=== PATIENT | male | born 1940 | race Hispanic/Latino ===

== ENCOUNTER 2019-05-02 05:53 | Day surgery (SDC) | payer MEDICARE ==
[~2019-05-02 05:53] MED LIST: LACTATED RINGERS 1,000 ML IV SCH; VANCOMYCIN/NS 1 GM/250 ML 1 GM/250 ML BAG IV SCH
[2019-05-02] MEDS ORDERED: GENTAMICIN/NS 80 MG/100 ML 100 ML IV SCH (06:00)
[2019-05-02] MEDS ORDERED: GENTAMICIN/NS 80 MG/100 ML 100 ML IV ONE (06:59)
[2019-05-02] MEDS ORDERED: ROCURONIUM 50 MG/5 ML INJ IV ONE (07:00)
[2019-05-02] MEDS ORDERED: propofoL 200 MG/20 ML VIAL IV ONE (07:00)
[2019-05-02] MEDS ORDERED: LIDOCAINE MPF (2%) 20 MG/1 ML VIAL 5 ML ONE (07:00)
[2019-05-02] MEDS ORDERED: fentaNYL 100 MCG/2 ML INJ ONE ×2 (07:00→09:09)
[2019-05-02] MEDS ORDERED: SODIUM CHLORIDE 0.9% 250ML 0 ML ONE (07:18)
[2019-05-02] MEDS ORDERED: NEOMY 40 MG/POLYMYXIN B 200,000 UNITS/ML (GU) AMPULE IR ONE ×3 (07:19→08:44)
[2019-05-02] MEDS ORDERED: fentaNYL 100 MCG/2 ML INJ IV PRN (07:24)
--- NOTE | 2019-05-02 07:27 | Anesthesia Day of Surgery ---
Anesthesia Day of Surgery - Day of Surgery Patient Examined: Yes Patient H&P Reviewed: Yes Patient is NPO: Yes Beta Blockers: Yes Cardiac Clearance: Yes
--- NOTE | 2019-05-02 07:27 | Anesthesia Consultation ---
Anesthesia Consult and Med Hx Date of service: 05/02/19 - Airway Anesthetic Teeth Evaluation: Edentulous ROM Head & Neck: Adequate Mental/Hyoid Distance: Adequate Mallampati Class: Class I Intubation Access Assessment: Probably Good (previous LMA 4) - Pulmonary Exam CTA: Yes - Cardiac Exam Cardiac Exam: RRR - Pre-Operative Health Status ASA Pre-Surgery Classification: ASA3 Proposed Anesthetic Plan: General - Pulmonary Hx Smoking: Yes (quit 1979) Hx Respiratory Symptoms: No Hx Sleep Apnea: No (NELA PRE SCREEN HIGH RISK) - Cardiovascular System Hx Hypertension: Yes (took metoprolol, losartan this morning) Hx Coronary Artery Disease: Yes (CABG 10/2013, cardiology clearance on chart) Hx Heart Attack/AMI: No Hx Angina: No Hx Cardia Arrhythmia: Yes (1 episode a-2013; LBBB on most recent EKG) Hx Pacemaker: No Hx Internal Defibrillator: No Hx Peripheral Vascular Disease: No - Central Nervous System CVA: No Hx Psychiatric Problems: No - Gastrointestinal Hx Gastroesophageal Reflux Disease: No - Endocrine Hx Renal Disease: No Hx Liver Disease: No Hx Insulin Dependent Diabetes: No Hx Non-Insulin Dependent Diabetes: No Hx Thyroid Disease: No - Other Systems Hx Cancer: Yes (Prostate CA ) Hx Obesity: No - Additional Comments Anesthesia Medical History Comments: Hx PONV. TTE 04/2019: EF 65%
[2019-05-02] MEDS ORDERED: VANCOMYCIN 1,250 MG in SODIUM CHLORIDE 0.9% 250ML 250 ML IV NR (07:30)
[2019-05-02] MEDS ORDERED: dexAMETHasone 20 MG/5 ML VIAL ONE (08:00)
[2019-05-02] MEDS ORDERED: ePHEDrine SULFATE 50 MG/1 ML INJ ONE (08:06)
[2019-05-02] MEDS ORDERED: HYDROGEN PEROXIDE 118 ML SOLUTION ONE (08:18)
[2019-05-02] MEDS ORDERED: ONDANSETRON 4 MG/2 ML INJ ONE (08:19)
[2019-05-02] MEDS ORDERED: HYDROGEN PEROXIDE 118 ML SOLUTION TP ONE (08:48)
[2019-05-02] MEDS ORDERED: SODIUM CHLORIDE 0.9% IRR 1,500 ML BOTTLE IR ONE (08:49)
[2019-05-02] MEDS ORDERED: WATER FOR IRRIG STERILE 2000 ML IR ONE (08:50)
--- NOTE | 2019-05-02 09:33 | Short Stay Summary ---
Short Stay Documentation Date of service: 05/02/19 - History H&P: obtained from office - Allergies and Medications Current Medications: Allergies No Known Allergies Allergy (Verified 10/19/13 09:47) Home Medications Medication Instructions Recorded Confirmed Last Taken Type Aspirin [Aspirin BABY CHEW TAB] 81 mg PO DAILY 10/19/13 04/19/19 11/09/14 History AtorvaSTATin [Lipitor] 20 mg PO DAILY 11/10/14 04/19/19 11/14/14 18:00 History Losartan [Cozaar] 100 mg PO QDAY 04/19/19 04/19/19 Unknown History Metoprolol [Lopressor TAB] 25 mg PO BID 04/19/19 04/19/19 Unknown History Active Medications Fentanyl (Sublimaze) 50 mcg IV Q5MIN PRN PRN Reason: Pain , Severe (7-10) Stop: 05/02/19 20:00 Gentamicin Sulfate/Sodium Chloride (Gentamicin/Ns 80 Mg/100 Ml) 100 mls @ 196.078 mls/hr IV PREOP TONY; Protocol Vancomycin HCl (Vancomycin/Ns 1 Gm/250 Ml) 1 gm in 250 mls @ 160.085 mls/hr IV PREOP TONY; Protocol Lactated Ringer's (Lactated Ringers) 1,000 mls @ 100 mls/hr IV DIRECT TONY Last Admin: 05/02/19 07:05 Dose: 100 mls/hr Documented by: Vancomycin HCl 1,250 mg/ (Sodium Chloride) 275 mls @ 166.667 mls/hr IV PREOP NR Stop: 05/02/19 10:00 Last Admin: 05/02/19 07:25 Dose: 166.667 mls/hr Documented by: - Brief post op/procedure progress note Date of procedure: 05/02/19 Pre-op diagnosis: mal fx aus, incontinence Post-op diagnosis: other (impacted urethtal stone, incontinence) Procedure: urethroscopy, lithoclast lithotrispy impacted urethral stone---- staged Anesthesia: GETA Surgeon: HUBERT JACKSON Estimated blood loss: minimal Pathology: none Condition: stable - Hospital course Hospital course: pt has norco & bactrim - Disposition Condition at discharge: Stable Disposition: DC-01 TO HOME OR SELFCARE Short Stay Discharge Plan Follow up with: DEJA FARR MD [Primary Care Provider] - 7 Days
--- NOTE | 2019-05-02 10:00 | Operative Report ---
PREOPERATIVE DIAGNOSES: Urinary incontinence, malfunctioning artificial urinary sphincter. POSTOPERATIVE DIAGNOSES: Urinary incontinence, malfunctioning artificial urinary sphincter, impacted urethral stone. PROCEDURE: Ureteroscopy, lithoclast lithotripsy of impacted ureteral stone (stage procedure). SURGEON: Dr. Pascal. ANESTHESIA: General. ESTIMATED BLOOD LOSS: Minimal. FLUIDS: Crystalloid. COMPLICATIONS: No complications. INDICATIONS: This patient is a 78-year-old gentleman known to our service, underwent radical robotic prostatectomy [address] Corey Duran. He has had no evidence of disease from his cancer standpoint. He had persistent urinary incontinence and erectile dysfunction, underwent previous inflatable penile prosthesis and then later male sling and then ultimately artificial urinary sphincter. In the office, he presented with 1 year of urinary incontinence. No pain. In the office, the sphincter pump would not completely deflate. He presents now for replacement. DESCRIPTION OF PROCEDURE: The patient was taken to the operative suite, placed in a supine position. After adequate general anesthesia, placed in a dorsal lithotomy position, prepped and draped in the sterile fashion. Ureteroscopy was performed. Obvious stone could be appreciated at the impacted and at the level of the artificial urinary sphincter, switched from a flexible to a rigid scope, grasper was used to try to engage and pulled the stone could not pull it out. The urethral integrity was intact. Next, using a LithoClast lithotripter, lithotripsy of the impacted stone was performed. I was able to break up some of the fragments; however, started to have some bleeding and edema of the urethra. At this point, I was concerned for the integrity of the urethra and I stopped and decided it would be prudent to stage the procedure otherwise risk erosion of his sphincter and possible penile implant. He was extubated and taken to recovery room in stable condition. PLAN: He will go home. He has Bactrim and [place] and will follow up in the office for followup for staged procedure. JOB# [id number] [facility]
[2019-05-02 10:42] VITALS: BP 145/68
--- NOTE | 2019-05-02 11:25 | Post Anesthesia Evaluation ---
- Post Anesthesia Evaluation Patient Participated: Yes Airway Patent: Yes Stable Respiratory Function: Yes Nausea/Vomiting: No Temp > 96.8F: Yes Pain Manageable: Yes Adequeate Hydration: Yes Anesthesia Complications: No
== END 2019-05-02 05:54 | disposition home or self-care (01) ==
LOC: OR 05:53
PROVIDERS: ATTEND Urology
DX: N39.498 Other specified urinary incontinence (principal); T83.111A Breakdown (mechanical) of implanted urinary sphincter, initial encounter; I48.91 Unspecified atrial fibrillation; I42.9 Cardiomyopathy, unspecified; I25.10 Atherosclerotic heart disease of native coronary artery without angina pectoris; E78.00 Pure hypercholesterolemia, unspecified; I10 Essential (primary) hypertension; Z87.440 Personal history of urinary (tract) infections; Z79.899 Other long term (current) drug therapy; Z79.82 Long term (current) use of aspirin; Z95.1 Presence of aortocoronary bypass graft; Z87.891 Personal history of nicotine dependence; Z85.46 Personal history of malignant neoplasm of prostate; Z98.890 Other specified postprocedural states; Z82.49 Family history of ischemic heart disease and other diseases of the circulatory system
CPT/HCPCS: 52353; A4217; J1100; J1580; J2405; J2704; J3010; J3370; J7050; J7120

== ENCOUNTER 2019-05-18 10:59 | Day surgery (SDC) | payer MEDICARE ==
[~2019-05-18 10:59] MED LIST changes: +GENTAMICIN/NS 80 MG/100 ML 100 ML IV SCH; -LACTATED RINGERS 1,000 ML IV SCH; +LIDOCAINE MPF (2%) 20 MG/1 ML VIAL 5 ML ONE; +fentaNYL 100 MCG/2 ML INJ ONE; +propofoL 200 MG/20 ML VIAL IV ONE
--- NOTE | 2019-05-18 11:22 | Anesthesia Consultation ---
Anesthesia Consult and Med Hx Date of service: 05/18/19 - Airway Anesthetic Teeth Evaluation: Dentures ROM Head & Neck: Adequate Mental/Hyoid Distance: Adequate Mallampati Class: Class II Intubation Access Assessment: Probably Good (previous easy LMA 4) - Pulmonary Exam CTA: Yes - Cardiac Exam Cardiac Exam: RRR - Pre-Operative Health Status ASA Pre-Surgery Classification: ASA3 Proposed Anesthetic Plan: General - Pulmonary Hx Smoking: Yes (STOPPED 1979) Hx Respiratory Symptoms: No Hx Sleep Apnea: No (NELA PRE SCREEN HIGH RISK.) - Cardiovascular System Hx Hypertension: Yes (took metoprolol and losartan this morning) Hx Coronary Artery Disease: Yes (s/p CABG 2013) Hx Cardia Arrhythmia: Yes (1 episode a-fib 2013; LBBB on most recent EKG) Hx Pacemaker: No Hx Internal Defibrillator: No - Central Nervous System CVA: No - Gastrointestinal Hx Gastroesophageal Reflux Disease: No - Endocrine Hx Renal Disease: No Hx Liver Disease: No Hx Insulin Dependent Diabetes: No Hx Non-Insulin Dependent Diabetes: No Hx Thyroid Disease: No - Other Systems Hx Cancer: Yes (Prostate CA ) Hx Obesity: No - Additional Comments Anesthesia Medical History Comments: Hx PONV with previous anesthetics however none wl most recent GA last month.
--- NOTE | 2019-05-18 11:23 | Anesthesia Day of Surgery ---
Anesthesia Day of Surgery - Day of Surgery Patient Examined: Yes Patient H&P Reviewed: Yes Patient is NPO: Yes Beta Blockers: Yes
[2019-05-18] MEDS ORDERED: LACTATED RINGERS 1,000 ML IV SCH (12:00)
[2019-05-18] MEDS ORDERED: ceFAZolin/Water 2 GM/20 ML 2 GM/20 ML SYRINGE IV NR (13:00)
[2019-05-18] MEDS ORDERED: WATER FOR IRRIG STERILE 2000 ML IR ONE (13:35)
[2019-05-18] MEDS ORDERED: IOHEXOL 300 MG/ML 100ML IV ONE (13:35)
[2019-05-18] MEDS ORDERED: ONDANSETRON 4 MG/2 ML INJ ONE (14:39)
--- NOTE | 2019-05-18 14:41 | Short Stay Summary ---
Short Stay Documentation Date of service: 05/18/19 Narrative H&P: 78 yr old male with AUS & impacted urethral stone present for treatment also has 4mm penile lesion - History Past Medical History: CAD (CABG. robotic prostatectomy, AUS, IPP) - Allergies and Medications Current Medications: Allergies No Known Allergies Allergy (Verified 10/19/13 09:47) Home Medications Medication Instructions Recorded Confirmed Last Taken Type Aspirin [Aspirin BABY CHEW TAB] 81 mg PO DAILY 10/19/13 05/18/19 05/10/19 History AtorvaSTATin [Lipitor] 20 mg PO DAILY 11/10/14 05/18/19 05/17/19 History Losartan [Cozaar] 100 mg PO QDAY 04/19/19 05/18/19 05/18/19 History Metoprolol [Lopressor TAB] 25 mg PO BID 04/19/19 05/18/19 05/18/19 History Active Medications Fentanyl (Sublimaze) 50 mcg IV Q5MIN PRN PRN Reason: Pain , Severe (7-10) Lactated Ringer's (Lactated Ringers) 1,000 mls @ 100 mls/hr IV DIRECT TONY Last Admin: 05/18/19 11:55 Dose: 100 mls/hr Documented by: Cefazolin Sodium (Ancef/Sterile Water 2 Gm/20 Ml) 2 gm in 20 mls @ 80 mls/hr IV PREOP NR; Protocol Stop: 05/18/19 18:00 - Physical exam General appearance: no acute distress, well-nourished Integumentary: no rash, no growths Lungs: Clear to auscultation, Normal air movement Heart: Regular rate, No murmurs Rectal Exam: deferred Extremities: no ischemia, No edema - Brief post op/procedure progress note Date of procedure: 05/18/19 Pre-op diagnosis: AUS & impacted urethral stone. peile lesion Post-op diagnosis: same Procedure: urethroscopy, holium laser stone, excision penile lesion Anesthesia: GETA Surgeon: HUBERT JACKSON Estimated blood loss: minimal Pathology: list (stone, penile lesion) Specimen disposition: to lab Condition: stable - Hospital course Hospital course: cipro on chart - Disposition Condition at discharge: Stable Disposition: DC-01 TO HOME OR SELFCARE Short Stay Discharge Plan Follow up with: DEJA FARR MD [Primary Care Provider] - 7 Days
[2019-05-18] MEDS ORDERED: LACTATED RINGERS 1,000 ML ONE (14:42)
[2019-05-18] MEDS: fentaNYL 100 MCG/2 ML INJ IV PRN ×2 (15:05→15:20)
[2019-05-18 15:58] VITALS: BP 144/71
--- NOTE | 2019-05-18 16:45 | Fluoroscopy Report ---
INTRAOPERATIVE FLUOROSCOPY: URETHROGRAM INDICATION / CLINICAL INFORMATION: CALCULUS OF URETHRA. TECHNIQUE: Intraoperative spot images were obtained during the procedure. FINDINGS: Intraoperative urethrogram performed. Contrast is noted in the penile urethra. The proximal urethra a ppears somewhat narrow on this exam but is patent. No urethral disruption is seen. Fluoroscopy Time: 5 seconds. Fluoroscopy Images: 6. Signer Name: Edison Lakhani MD Signed: 05/18/2019 4:40 PM Workstation Name: [id number]
--- NOTE | 2019-05-18 18:20 | Operative Report ---
PREOPERATIVE DIAGNOSIS: Impacted urethral stone, status post artificial urinary sphincter. POSTOPERATIVE DIAGNOSIS: Impacted urethral stone, status post artificial urinary sphincter. He also had a penile lesion. PROCEDURES: Urethroscopy, holmium laser lithotripsy, urethral stone, urethrogram, excision of penile lesion, staged procedure. SURGEON: Pedro Pascal MD ANESTHESIA: General. ESTIMATED BLOOD LOSS: Minimal. FLUIDS: Crystalloid. COMPLICATIONS: No complications. INDICATIONS: This 78-year-old gentleman known to our service prostate. He has a history of prostate cancer, status post robotic prostatectomy, status post artificial urinary sphincter and penile prosthesis. A stone was wedged in his sphincter. Sphincter was reactivated. He underwent previous lithoclast lithotripsy with some fragmentation of the disimpacted stone, had to stop due to ____, bleeding and concern for injuring the sphincter cuff; therefore, I stopped. He presents now for staged procedure. DESCRIPTION OF PROCEDURE: The patient was taken to the operative suite, placed in a supine position. After adequate general anesthesia, placed in a dorsal lithotomy position, prepped and draped in a sterile fashion. The patient has a penile lesion at the left side of the coronal ridge. A Bovie was used to excise this area approximately 1 cm, 3-0 Vicryl was used to close it in interrupted fashion, skin glue was then placed over it. Urethroscopy was performed. Urethrogram could see some dye get into the bladder, a large stone wedged into the sphincter using a 300 micron holmium fiber starting at 4 maradiaga going up to 10 maradiaga lithotripsy of the stone could be appreciated. His stone was fairly hard, started to be some edema of the urethra, was concerned about the integrity of the urethra and damaging the sphincter and therefore, I stopped the procedure. He was extubated and taken to recovery room. He will go home on [facility] and will come back in 2-3 weeks. JOB# [id number] [facility]
== END 2019-05-18 16:35 | disposition home or self-care (01) ==
LOC: OR 10:59
PROVIDERS: ATTEND Urology
DX: N21.1 Calculus in urethra (principal); N50.89 Other specified disorders of the male genital organs; I48.91 Unspecified atrial fibrillation; I25.10 Atherosclerotic heart disease of native coronary artery without angina pectoris; I42.9 Cardiomyopathy, unspecified; E78.00 Pure hypercholesterolemia, unspecified; I10 Essential (primary) hypertension; Z85.46 Personal history of malignant neoplasm of prostate; Z98.890 Other specified postprocedural states; Z79.899 Other long term (current) drug therapy; Z95.1 Presence of aortocoronary bypass graft; Z79.82 Long term (current) use of aspirin; Z87.891 Personal history of nicotine dependence; Z87.440 Personal history of urinary (tract) infections; Z82.49 Family history of ischemic heart disease and other diseases of the circulatory system
CPT/HCPCS: 11421; 36415; 52353; 74450; 82365; 88305; 88312; 88341; 88342; A4217; C1726; C1769; J0690; J2405; J2704; J3010; J7120; Q9967

== ENCOUNTER 2019-06-01 12:27 | Day surgery (SDC) | payer MEDICARE ==
[2019-06-01] MEDS ORDERED: LACTATED RINGERS 1,000 ML IV SCH (13:00)
--- NOTE | 2019-06-01 13:56 | Anesthesia Day of Surgery ---
Anesthesia Day of Surgery - Day of Surgery Patient Examined: Yes Patient H&P Reviewed: Yes Patient is NPO: Yes Beta Blockers: Yes Cardiac Clearance: Yes
--- NOTE | 2019-06-01 13:59 | Anesthesia Consultation ---
Anesthesia Consult and Med Hx Date of service: 06/01/19 - Airway Anesthetic Teeth Evaluation: Edentulous ROM Head & Neck: Adequate Mental/Hyoid Distance: Adequate Mallampati Class: Class II Intubation Access Assessment: Good - Pre-Operative Health Status ASA Pre-Surgery Classification: ASA3 Proposed Anesthetic Plan: General - Pre-Anesthesia Comment Pre-Anesthesia Comments: HX PONV - Pulmonary Hx Smoking: Yes (STOPPED 1979) Hx Asthma: No Hx Respiratory Symptoms: No COPD: No Hx Pneumonia: No Hx Sleep Apnea: No (NELA PRE SCREEN HIGH RISK) - Cardiovascular System Hx Hypertension: Yes (X 30 YRS) Hx Coronary Artery Disease: Yes (CABG 2013. + Cardiac clearance. Pt states he ca n climb 2FS) Hx Cardia Arrhythmia: Yes (1 episode a-fib 2013; LBBB on most recent EKG) - Central Nervous System Hx Seizures: No CVA: No Hx Psychiatric Problems: No - Gastrointestinal Hx Ulcer: No Hx Gastroesophageal Reflux Disease: No - Endocrine Hx Renal Disease: No Hx Cirrhosis: No Hx Liver Disease: No Hx Insulin Dependent Diabetes: No Hx Non-Insulin Dependent Diabetes: No Hx Thyroid Disease: No Hx Hypothyroidism: No Hx Hyperthyroidism: No - Other Systems Hx Cancer: Yes (Prostate CA ) Hx Obesity: No - Additional Comments Anesthesia Medical History Comments: Was here [id number]
[2019-06-01] MEDS ORDERED: ceFAZolin/STERILE WATER 2 GM/20 ML SYRINGE IV NR (14:23)
[2019-06-01] MEDS ORDERED: propofoL 200 MG/20 ML VIAL IV ONE (14:29)
[2019-06-01] MEDS ORDERED: fentaNYL 100 MCG/2 ML INJ ONE (14:29)
[2019-06-01] MEDS ORDERED: LIDOCAINE MPF (2%) 20 MG/1 ML VIAL 5 ML ONE (14:29)
[2019-06-01] MEDS ORDERED: ONDANSETRON 4 MG/2 ML INJ ONE (14:30)
[2019-06-01] MEDS ORDERED: dexAMETHasone 20 MG/5 ML VIAL ONE (14:30)
[2019-06-01] MEDS ORDERED: WATER FOR IRRIG STERILE 2000 ML IR ONE (16:00)
[2019-06-01] MEDS ORDERED: LACTATED RINGERS 1,000 ML ONE (16:14)
--- NOTE | 2019-06-01 16:22 | Short Stay Summary ---
Short Stay Documentation Date of service: 06/01/19 Narrative H&P: 78 yr old male with AUS & impacted urethral stone present for treatment also has 4mm penile lesion (removed last procedure) - History Past Medical History: CAD (CABG. robotic prostatectomy, AUS, IPP) - History Past Medical History: No medical history, CAD Past Surgical History: CABG Social history: - Allergies and Medications Current Medications: Allergies No Known Allergies Allergy (Verified 10/19/13 09:47) Home Medications Medication Instructions Recorded Confirmed Last Taken Type Aspirin [Aspirin BABY CHEW TAB] 81 mg PO DAILY 10/19/13 06/01/19 05/25/19 History AtorvaSTATin [Lipitor] 20 mg PO DAILY 11/10/14 06/01/19 05/31/19 History Losartan [Cozaar] 100 mg PO QDAY 04/19/19 05/26/19 06/01/19 08:30 History Metoprolol [Lopressor TAB] 25 mg PO BID 04/19/19 05/26/19 06/01/19 08:30 History Active Medications Cefazolin Sodium (Ancef/Sterile Water 2 Gm/20 Ml) 2 gm IV PREOP NR Stop: 06/01/19 23:59 Lactated Ringer's (Lactated Ringers) 1,000 mls @ 100 mls/hr IV DIRECT TONY Last Admin: 06/01/19 13:10 Dose: 100 mls/hr Documented by: - Physical exam General appearance: no acute distress, well-nourished Integumentary: no rash, no growths Lungs: Clear to auscultation, Normal air movement Heart: Regular rate, No murmurs Gastrointestinal: normal Male Genitourinary: normal Rectal Exam: normal rectal tone Extremities: no ischemia, No edema Neurological: Normal gait - Brief post op/procedure progress note Date of procedure: 06/01/19 Pre-op diagnosis: impacted urethral stone Post-op diagnosis: same Procedure: urethroscopy, urethrogram, holmium llaser impacted urethral stone Anesthesia: GETA Surgeon: HUBERT JACKSON Estimated blood loss: minimal Condition: stable - Hospital course Hospital course: cipro on chart---pt has pain meds - Disposition Condition at discharge: Stable Disposition: DC-01 TO HOME OR SELFCARE Short Stay Discharge Plan Follow up with: DEJA FARR MD [Primary Care Provider] - 7 Days
--- NOTE | 2019-06-01 16:48 | Operative Report ---
PREOPERATIVE DIAGNOSIS: Impacted urethral stone, status post artificial urinary sphincter. POSTOPERATIVE DIAGNOSES: Impacted urethral stone, status post artificial urinary sphincter. PROCEDURE: Ureteroscopy, urethrogram, holmium laser lithotripsy of urethral stone, staged procedure. SURGEON: Pedro Pascal MD ANESTHESIA: General. ESTIMATED BLOOD LOSS: Minimal. FLUIDS: Crystalloid. COMPLICATIONS: No complications. INDICATIONS: This patient is a 78-year-old gentleman known to our service with a history of prostate cancer, status post radical prostatectomy, artificial urinary sphincter and penile prosthesis. He has done well in the past; however, he has a wedged urethral stone in his sphincter. The sphincter has been deactivated. Previous lithoclast and holmium laser reduced the stone burden; however, there was edema and swelling of the urethra and I felt it was prudent to stage the procedure. He presents now for reevaluation. DESCRIPTION OF PROCEDURE: The patient was taken to the operative suite, placed in a supine position. After adequate general anesthesia, placed in a dorsal lithotomy position, prepped and draped in a sterile fashion. Ureteroscopy was performed. Urethrogram contrast was noted in the bladder. Obvious stone could be noted in the sphincter, which was still deactivated. Attempts to engage it with a grasper was unsuccessful in removing it. Using a 300-micron holmium fiber starting at 4 maradiaga and going up to 10, holmium lithotripsy was performed. Fragmentation of the stone could be appreciated and was able to remove some of the fragments and render him stone free. I then put a 0.035 Glidewire from the urethra into the bladder under fluoroscopic guidance and advanced a flexible ureteroscope into the bladder. No other abnormalities could be a appreciated. The integrity of the urethra was intact. Sphincter cuff was not exposed. The patient tolerated the procedure well. Rectal exam was benign. He was extubated and taken to recovery room. Go home on Cipro. We will reactivate his sphincter in 3-4 weeks. JOB# [id number] [facility]
[2019-06-01 17:03] VITALS: BP 142/75
--- NOTE | 2019-06-01 17:10 | Fluoroscopy Report ---
SPOT FILMS OF THE ABDOMEN 4 VIEWS INDICATION / CLINICAL INFORMATION: URETHRAL STONE. COMPARISON: None available. FINDINGS: Intraoperative images show placement of a wire and catheter through the urethra into the urinary blad sukhjinder. Some contrast is demonstrated within the bladder. No contrast extravasation. Signer Name: Devaughn Mccormack MD Signed: 06/01/2019 5:06 PM Workstation Name: [id number]
--- NOTE | 2019-06-02 08:17 | Post Anesthesia Evaluation ---
- Post Anesthesia Evaluation Patient Participated: Yes Airway Patent: Yes Stable Respiratory Function: Yes Nausea/Vomiting: No Temp > 96.8F: Yes Pain Manageable: Yes Adequeate Hydration: Yes Anesthesia Complications: No Block Receding Appropriately: Not Applicable Patient on Ventilator: No
== END 2019-06-01 17:30 | disposition home or self-care (01) ==
LOC: OR 12:27
PROVIDERS: ATTEND Urology
DX: N21.1 Calculus in urethra (principal); I48.91 Unspecified atrial fibrillation; I25.10 Atherosclerotic heart disease of native coronary artery without angina pectoris; I42.9 Cardiomyopathy, unspecified; E78.00 Pure hypercholesterolemia, unspecified; I10 Essential (primary) hypertension; Z85.46 Personal history of malignant neoplasm of prostate; Z98.890 Other specified postprocedural states; Z79.899 Other long term (current) drug therapy; Z95.1 Presence of aortocoronary bypass graft; Z79.82 Long term (current) use of aspirin; Z79.01 Long term (current) use of anticoagulants; Z87.891 Personal history of nicotine dependence; Z87.440 Personal history of urinary (tract) infections; Z82.49 Family history of ischemic heart disease and other diseases of the circulatory system
CPT/HCPCS: 51610; 52353; 74450; A4217; C1758; C1769; J0690; J1100; J2405; J2704; J3010; J7120; Q9967

== ENCOUNTER 2019-11-23 06:14 | Emergency (ER) | payer MEDICARE ==
--- NOTE | 2019-11-23 06:38 | Emergency Department Report ---
ED Male HPI - General Chief complaint: Abdominal Pain Stated complaint: URINARY RETENTION Time Seen by Provider: 11/23/19 06:30 Source: patient, RN notes reviewed, old records reviewed Mode of arrival: Ambulatory Limitations: No Limitations - History of Present Illness Initial comments: The patient was evaluated in the emergency department for symptoms described in the history of present illness. He/she was evaluated in the context of the global COVID-19 pandemic, which necessitated consideration that the patient might be at risk for infection with the virus that causes COVID-19. Institutional protocols and algorithms that pertain to the evaluation of patients at risk for COVID-19 are in a state of rapid change based on information released by regulatory bodies including the CDC and federal and state organizations. These policies and algorithms were followed during the patient's care in the emergency department. Please note that these policies, procedures and recommendations changed on a rapid basis. During the entire history and physical examination, I am chaperoned/escorted by nurse Brenda Zapien Urology/: Dr. Aidan Pascal Past medical history: Left bundle branch block, history of prostate cancer, radical prostatectomy in 2008, history of artificial urinary sphincter, and penile prosthesis. Patient had a short stay at this hospital November 07, 2019, had replacement of artificial urinary sphincter performed, and a cystoscopy performed. He was discharged after an uneventful stay, with a Magana catheter which was sub sequently removed. He then developed urinary retention, and had a Magana catheter replaced, and he saw his aforementioned urologist yesterday, who then discontinued the Magana catheter, and the patient passed a trial of void while in the office. He then presents to the ER today with complaint of inability to urinate. He denies all other complaints. He denies headache, neck pain, chest pain, shortness of breath, nausea, vomiting, testicular pain, a significant postoperative pain. He states he is only able to urinate "a little dribble." He indicates that if he were able to urinate, he would not have presented to the emergency room. He states his postoperative check yesterday with his surgeon was "good." Complaint: other -: Sudden, hour(s) Radiation: none Consistency: constant Improves with: none Worsens with: none urinary retention - Related Data Home Medications Medication Instructions Recorded Confirmed Last Taken Aspirin [Aspirin BABY CHEW TAB] 81 mg PO DAILY 0811/07/19 10/31/19 09:00 AtorvaSTATin [Lipitor] 20 mg PO HS 11/10/14 11/07/19 11/06/19 20:00 Losartan [Cozaar] 100 mg PO QDAY 04/19/19 11/07/19 11/07/19 05:00 Metoprolol [Lopressor TAB] 25 mg PO QID 04/19/19 11/07/19 11/07/19 05:00 Previous Rx's Medication Instructions Recorded Last Taken Type Nitrofurantoin [place]/M-Cryst 100 mg PO Q12HR #13 capsule 11/23/19 Unknown Rx [Macrobid CAP] Allergies Allergy/AdvReac Type Severity Reaction Status Date / Time No Known Allergies Allergy Verified 10/19/13 09:47 ED Review of Systems ROS: Stated complaint: URINARY RETENTION Other details as noted in HPI Constitutional: denies: fever Eyes: denies: eye discharge ENT: denies: epistaxis Respiratory: denies: cough Cardiovascular: denies: chest pain Gastrointestinal: abdominal pain (Suprapubic abdominal pain). denies: nausea, vomiting, hematemesis, melena Genitourinary: other (Urinary retention). denies: urgency, dysuria, frequency, hematuria, testicular pain Neurological: denies: weakness ED Past Medical Hx - Past Medical History Previous Medical History?: Yes Hx Hypertension: Yes (X 30 YRS) Hx Heart Attack/AMI: No Hx Congestive Heart Failure: No Hx Diabetes: No Hx Pulmonary Embolism: No Hx GERD: No Hx Liver Disease: No Hx Renal Disease: No Hx Sickle Cell Disease: No Hx Arthritis: No Hx Headaches / Migraines: No Hx Seizures: No Hx Kidney Stones: Yes Hx Asthma: No Hx COPD: No Hx Tuberculosis: No Hx Dementia: No Hx HIV: No - Surgical History Past Surgical History?: Yes Hx Coronary Stent: No Hx Open Heart Surgery: Yes (2014 4 VESSELS) Hx Pacemaker: No Hx Internal Defibrillator: No Additional Surgical History: angioplasty - Social History Smoking Status: Never Smoker Substance Use Type: None - Medications Home Medications: Home Medications Medication Instructions Recorded Confirmed Last Taken Type Aspirin [Aspirin BABY CHEW TAB] 81 mg PO DAILY 10/19/13 11/07/19 10/31/19 09:00 History AtorvaSTATin [Lipitor] 20 mg PO HS 11/10/14 11/07/19 11/06/19 20:00 History Losartan [Cozaar] 100 mg PO QDAY 04/19/19 11/07/19 11/07/19 05:00 History Metoprolol [Lopressor TAB] 25 mg PO QID 04/19/19 11/07/19 11/07/19 05:00 History Nitrofurantoin [place]/M-Cryst 100 mg PO Q12HR #13 capsule 11/23/19 Unknown Rx [Macrobid CAP] ED Physical Exam - General Limitations: No Limitations General appearance: alert, in no apparent distress - Head Head exam: Present: atraumatic, normocephalic - Eye Eye exam: Present: normal appearance, EOMI. Absent: nystagmus - ENT ENT exam: Present: normal exam, normal orophraynx, mucous membranes moist, normal external ear exam - Neck Neck exam: Present: normal inspection, full ROM. Absent: tenderness, men ingismus - Respiratory Respiratory exam: Present: normal lung sounds bilaterally. Absent: respiratory distress - Cardiovascular Cardiovascular Exam: Present: regular rate, normal rhythm, normal heart sounds. Absent: bradycardia, tachycardia, irregular rhythm, systolic murmur, diastolic murmur, rubs, gallop - GI/Abdominal GI/Abdominal exam: Present: soft, other (There is mild suprapubic fullness. There is a horizontal suprapubic surgical scar noted, without redness, pus or streaking.). Absent: distended, tenderness, guarding, rebound, rigid, pulsatile mass - Rectal Rectal exam: Present: deferred - exam: Present: normal inspection, other (There is no testicular tenderness. Penile implant is palpated in the phallus. There is no urethral discharge. The perineum is nontender and appears to be within normal limits.). Absent: testicular tenderness External exam: Present: normal external exam, other (Chaperoned by nurse Brenda Zapien) - Extremities Exam Extremities exam: Present: normal inspection, full ROM, other (2+ pulses noted in the bilateral upper and lower extremities. There is no palpable cord. negative Homans sign. Muscular compartments are soft. The pelvis is stable.). Absent: pedal edema, calf tenderness - Back Exam Back exam: Present: normal inspection, full ROM. Absent: tenderness, CVA tenderness (R), CVA tenderness (L), paraspinal tenderness, vertebral tenderness - Neurological Exam Neurological exam: Present: alert, normal gait, other (No facial droop. Tongue midline. Extraocular movements intact bilaterally. Facial sensation intact to light touch in V1, V2, V3 distribution bilaterally. 5 and a 5 strength in 4 extremities. Sensation intact to light touch in 4 extremities.) - Psychiatric Psychiatric exam: Present: normal affect, normal mood - Skin Skin exam: Present: warm, dry, intact, normal color. Absent: rash ED Course Vital Signs 11/23/19 11/23/19 06:19 06:45 Temperature 97.6 F Pulse Rate 73 71 Respiratory 18 23 Rate Blood Pressure 153/73 155/63 O2 Sat by Pulse 99 100 Oximetry - Reevaluation(s) Reevaluation #1: 11/23/19 07:00 Differential diagnosis, including but not limited to: Urinary retention, elec trolyte derangement, bacteriuria/pyuria Assessment and plan: 78-year-old gentleman presenting with urinary retention, after Magana catheter was discontinued yesterday, and he passed trial of void in his urologist's office. The patient is afebrile with reassuring vital signs, with an unremarkable physical examination, surgical sites appear to be clean, healing well, without evidence of infection, and they were also reportedly evaluated by his urologist of record yesterday. Main issue here is urinary retention, as per review of operative records, the patient required a small Magana catheter, therefore, we have requested a coud, or a 12 [place] Magana catheter. Nursing team is seeking to allocate these resources. Reevaluation #2: 11/23/19 08:13 Discussed history, physical, pertinent findings with covering urology, Dr. Carmela Lovelace, he agrees with plan of care, and indicates the patient can follow-up as an outpatient with a leg bag. Reevaluation #3: 11/23/19 09:04 Laboratory studies reviewed and appreciated. Patient asking to be discharged. Bacteriuria appreciated. Patient will be discharged with Macrobid. He is reliable to follow-up with his outpatient urologist. ED Medical Decision Making - Lab Data Result diagrams: 11/23/19 06:46 Vital Signs 11/23/19 11/23/19 06:19 06:45 Temperature 97.6 F Pulse Rate 73 71 Respiratory 18 23 Rate Blood Pressure 153/73 155/63 O2 Sat by Pulse 99 100 Oximetry Vital Signs 11/23/19 11/23/19 06:19 06:45 Temperature 97.6 F Pulse Rate 73 71 Respiratory 18 23 Rate Blood Pressure 153/73 155/63 O2 Sat by Pulse 99 100 Oximetry Lab Results 11/23/19 11/23/19 Range/Units 06:46 07:30 Sodium 136 L (137-145) mmol/L Potassium 4.6 (3.6-5.0) mmol/L Chloride 100.5 (98-107) mmol/L Carbon Dioxide 23 (22-30) mmol/L Anion Gap 17 mmol/L BUN 32 H (9-20) mg/dL Creatinine 1.3 (0.8-1.3) mg/dL Estimated GFR 54 ml/min BUN/Creatinine Ratio 25 % Glucose 133 H (75-100) mg/dL Calcium 9.5 (8.4-10.2) mg/dL Magnesium 2.00 (1.7-2.3) mg/dL Total Creatine Kinase 35 L (55-170) units/L Urine Color Yellow (Yellow) Urine Turbidity Cloudy (Clear) Urine pH 5.0 (5.0-7.0) Ur Specific [place] 1.016 (1.003-1.030) Urine Protein 100 mg/dl (Negative) mg/dL Urine Glucose (UA) Neg (Negative) mg/dL Urine Ketones Neg (Negative) mg/dL Urine Blood Mod (Negative) Urine Nitrite Neg (Negative) Urine Bilirubin Neg (Negative) Urine Urobilinogen 2.0 (<2.0) mg/dL Ur Leukocyte Esterase Lg (Negative) Urine WBC (Auto) 114.0 H (0.0-6.0) /HPF Urine RBC (Auto) 7.0 (0.0-6.0) /HPF U Epithel Cells (Auto) 1.0 (0-13.0) /HPF Urine Bacteria (Auto) 4+ (Negative) /HPF Urine WBC Clumps 2+ /HPF Urine Mucus 3+ /HPF Critical care attestation.: If time is entered above; I have spent that time in minutes in the direct care of this critically ill patient, excluding procedure time. ED Disposition Clinical Impression: Urinary retention, Bacteriuria Disposition: TO HOME OR SELFCARE Is pt being admited?: No Does the pt Need Aspirin: No Condition: Stable Additional Instructions: Cultures were sent today, and results will be available in the next 3 to 5 days. Please have your primary care doctor or urologist contact the medical records department to obtain culture results. Please continue Magana catheter to leg bag, and please follow-up with your urologist within the next 3 to 5 days. Please return to the emergency room right away with new pain, worsening pain, migration of pain, projectile vomiting, change in mental status, confusion, inability to tolerate liquid feeds, new, worsened or different symptoms not present on the initial emergency room evaluation. Referrals: HUBERT PASCAL MD [Primary Care Provider] - 3-5 Days
[2019-11-23] MEDS ORDERED: MORPHINE 15 MG TAB PO ONE (08:00)
[2019-11-23 08:28] LABS: Calcium 9.5 mg/dL (8.4-10.2)
[2019-11-23 08:47] LABS: Bacteria,Urine 4+ /HPF (Negative); Bilirubin,Urine NEG (Negative); Blood,Urine MOD (Negative); Color,Urine Yellow (Yellow); Mucus,Urine 3+ /HPF
[2019-11-23] MEDS ORDERED: NITROFURANTOIN MONOHYD/M-CRYST 100 MG CAP PO ONE (09:03)
[2019-11-23 10:42] VITALS: BP 136/76
== END 2019-11-23 10:40 | disposition home or self-care (01) ==
LOC: ED 06:14
DX: R33.9 Retention of urine, unspecified (principal); R82.71 Bacteriuria; I10 Essential (primary) hypertension; Z87.442 Personal history of urinary calculi; Z79.899 Other long term (current) drug therapy; Z98.890 Other specified postprocedural states
CPT/HCPCS: 36415; 51702; 80048; 81001; 82550; 83735; 87076; 87086; 87186

== ENCOUNTER 2019-12-01 12:32 | Observation (INO) | payer MEDICARE ==
[2019-12-01] MEDS ORDERED: ONDANSETRON 4 MG/2 ML INJ IV PRN ×2 (14:17→16:59)
[2019-12-01] MEDS ORDERED: ACETAMINOPHEN 325 MG TAB PO PRN (14:17)
[2019-12-01] MEDS ORDERED: ceFAZolin/Water 2 GM/20 ML 2 GM/20 ML SYRINGE IV NR (15:00)
[2019-12-01] MEDS: SODIUM CHLORIDE 0.45% 1000 ML 1,000 ML IV SCH ×2 (15:48→21:05)
--- NOTE | 2019-12-01 16:56 | Anesthesia Consultation ---
Anesthesia Consult and Med Hx Date of service: 12/01/19 - Airway Anesthetic Teeth Evaluation: Edentulous ROM Head & Neck: Adequate Mental/Hyoid Distance: Adequate Mallampati Class: Class II Intubation Access Assessment: Probably Good - Pulmonary Exam CTA: Yes - Cardiac Exam Cardiac Exam: RRR - Pre-Operative Health Status ASA Pre-Surgery Classification: ASA3, Emergency Proposed Anesthetic Plan: General - Pulmonary Hx Smoking: Yes (quit 40yrs ago) Hx Respiratory Symptoms: No Hx Sleep Apnea: No (NELA PRE SCREEN HIGH RISK) - Cardiovascular System Hx Hypertension: Yes Hx Coronary Artery Disease: Yes (s/p CABG 2013) Hx Heart Attack/AMI: No Hx Percutaneous Transluminal Coronary Angioplasty (PTCA): Yes Hx Cardia Arrhythmia: Yes (1 episode a-fib 2013; chronic LBBB per previous records) Hx Pacemaker: No Hx Internal Defibrillator: No - Central Nervous System CVA: No - Endocrine Hx Renal Disease: No Hx Liver Disease: No Hx Insulin Dependent Diabetes: No Hx Non-Insulin Dependent Diabetes: No Hx Thyroid Disease: No - Hematic Hx Anemia: Yes - Other Systems Hx Cancer: Yes (Prostate CA ) - Additional Comments Anesthesia Medical History Comments: Hx PONV in the past but none with most recent anesthetics. Scheduled for urgent replacement of artificial urinary sphincter 2/2 inability to urinate.
--- NOTE | 2019-12-01 16:59 | Anesthesia Day of Surgery ---
Anesthesia Day of Surgery - Day of Surgery Patient Examined: Yes Patient H&P Reviewed: No (No H&P available in EMR at time of exam. Previous records reviewed.) Patient is NPO: Yes (last solids/liquids 11/30 0800)
[2019-12-01] MEDS ORDERED: fentaNYL 100 MCG/2 ML INJ ONE ×2 (17:43→19:26)
[2019-12-01] MEDS ORDERED: LIDOCAINE MPF (2%) 20 MG/1 ML VIAL 5 ML ONE (17:43)
[2019-12-01] MEDS ORDERED: propofoL 200 MG/20 ML VIAL IV ONE (17:44)
[2019-12-01] MEDS ORDERED: SODIUM CHLORIDE 0.9% 1000 ML 1,000 ML ONE (17:55)
[2019-12-01] MEDS ORDERED: ceFAZolin 1 GM VIAL ONE (18:07)
[2019-12-01] MEDS ORDERED: ePHEDrine SULFATE 50 MG/1 ML INJ ONE (18:12)
[2019-12-01] MEDS ORDERED: WATER FOR IRRIG STERILE 1,500 ML BOTTLE IR ONE (19:03)
[2019-12-01] MEDS ORDERED: WATER FOR IRRIG STERILE 2000 ML IR ONE (19:03)
[2019-12-01] MEDS ORDERED: ONDANSETRON 4 MG/2 ML INJ ONE (19:18)
--- NOTE | 2019-12-01 19:22 | Short Stay Summary ---
Short Stay Documentation Date of service: 12/01/19 - History H&P: obtained from office - Allergies and Medications Current Medications: Allergies No Known Allergies Allergy (Verified 10/19/13 09:47) Home Medications Medication Instructions Recorded Confirmed Last Taken Type Aspirin [Aspirin BABY CHEW TAB] 81 mg PO DAILY 10/19/13 11/07/19 12/01/19 08:00 History AtorvaSTATin [Lipitor] 20 mg PO HS 11/10/14 11/07/19 11/30/19 20:00 History Losartan [Cozaar] 100 mg PO QDAY 04/19/19 11/07/19 12/01/19 08:00 History Metoprolol [Lopressor TAB] 50 mg PO BID 04/19/19 11/07/19 12/01/19 08:00 History Nitrofurantoin [place]/M-Cryst 100 mg PO Q12HR #13 capsule 11/23/19 12/01/19 08:00 Rx [Macrobid CAP] Active Medications Acetaminophen (Tylenol) 650 mg PO Q4H PRN PRN Reason: Pain MILD(1-3)/Fever >100.5/BERNAL Fentanyl (Sublimaze) 50 mcg IV Q5MIN PRN PRN Reason: Pain , Severe (7-10) Sodium Chloride (Nacl 0.45% 1000 Ml) 1,000 mls @ 75 mls/hr IV DIRECT TONY Last Admin: 12/01/19 15:48 Dose: 75 mls/hr Documented by: Cefazolin Sodium (Ancef/Sterile Water 2 Gm/20 Ml) 2 gm in 20 mls @ 80 mls/hr IV PREOP NR; Protocol Stop: 12/02/19 14:59 Ondansetron HCl (Zofran) 4 mg IV Q8H PRN PRN Reason: Nausea And Vomiting Ondansetron HCl (Zofran) 4 mg IV ONCE PRN PRN Reason: Nausea And Vomiting Sodium Chloride (Sodium Chloride Flush Syringe 10 Ml) 10 ml IV BID TONY Sodium Chloride (Sodium Chloride Flush Syringe 10 Ml) 10 ml IV PRN PRN PRN Reason: LINE FLUSH - Brief post op/procedure progress note Date of procedure: 12/01/19 Pre-op diagnosis: cuff erosion Post-op diagnosis: same Procedure: cysto, remove urethral cuff, urbina Anesthesia: GETA Surgeon: HUBERT JACKSON Estimated blood loss: minimal Pathology: none Condition: stable - Hospital course Hospital course: bactrim & norco home with urbina - Disposition Condition at discharge: Stable Disposition: DC-01 TO HOME OR SELFCARE Short Stay Discharge Plan Follow up with: HUBERT JACKSON MD [Primary Care Provider] - 7 Days
[2019-12-01] MEDS: fentaNYL 100 MCG/2 ML INJ IV PRN ×2 (19:25→19:44)
[2019-12-01] MEDS ORDERED: NALOXONE 0.4 MG/1 ML INJ IV PRN (19:25)
[2019-12-01] MEDS ORDERED: HYDROmorphone 1 MG/1 ML INJ IV PRN (19:25)
--- NOTE | 2019-12-01 19:31 | Operative Report ---
PREOPERATIVE DIAGNOSIS: Urethral erosion, (cuff), status post artificial sphincter placement. POSTOPERATIVE DIAGNOSIS: Urethral erosion, (cuff), status post artificial sphincter placement. PROCEDURE: Cystoscopy, removal of sphincter cuff with tubing plug. Magana catheter placement. SURGEON: Pedro Pascal MD ANESTHESIA: General. ESTIMATED BLOOD LOSS: Minimal. FLUIDS: Crystalloid. COMPLICATIONS: No complications. INDICATIONS: This patient is a 78-year-old gentleman with history of prostate cancer, status post penile implant and artificial urinary sphincter. Earlier this year, developed incontinence. Cystoscopy revealed a stone lodged in his artificial sphincter cuff. He underwent laser lithotripsy and removal of his stone and since that time, the sphincter cuff has not performed in its usual fashion, appeared to have the valve may have malfunctioned. He underwent an artificial urinary sphincter replacement, cuff reservoir and pump several weeks ago and has developed several episodes of urinary retention. The cuff was measured to be 3.5. He would have a 12-[place] Magana catheter placed and a voiding trial 1 week later, only to return in urinary retention. He presented today, unable to get a catheter in at this point. Scope revealed cuff in his urethra. He presents now for surgical intervention. He also has a penile implant. DESCRIPTION OF PROCEDURE: The patient was taken to the operative suite, placed in a supine position. After adequate general anesthesia, placed in a dorsal lithotomy position, prepped and draped in a sterile fashion. Cystoscopy was performed, could see the cuff in the urethra. No obvious pus could be appreciated. Perineum was prepped and draped. A midline incision was made. Sharp dissection was taken down to the urethra, which Magana was placed to abut at the sphincter cuff. Dissection exposed the cuff. No signs of infection. Aerobic and anaerobic culture was obtained. The cuff was then cut and removed. The device was deactivated again as it had been deactivated the entire time after placement. It was deactivated again, rubber shods on the tubing. The cuff was removed and a metal plug put on the end and tied with a Prolene. Copious irrigation was performed throughout this procedure. Adequate hemostasis achieved. The tubing was tucked laterally. A 2-0 Vicryl in a running and interrupted fashion for the subcutaneous tissue, 2-0 Vicryl on the skin was closed. Fluffs and mesh pants were placed. With the aid of a wire, a 16-[place] tip catheter was placed in the bladder. He was extubated and taken to recovery room. He will go home on [place] and Bactrim. JOB# [id number] [facility]
[2019-12-01] MEDS: HYDROcodone/ACETAMINOPHEN 5-325 MG TAB PO PRN (19:50)
[2019-12-01] MEDS ORDERED: HYDROcodone/ACETAMINOPHEN 5-325 MG TAB ONE (19:51)
[2019-12-02] MEDS: ceFAZolin/NS 1 GM/50 ML 1 GM/50 ML BAG IV SCH ×2 (02:45→10:37)
[2019-12-02 07:55] VITALS: BP 116/54
[2019-12-02] MEDS: HYDROcodone/ACETAMINOPHEN 5-325 MG TAB PO PRN (10:36)
--- NOTE | 2019-12-02 14:46 | Discharge Summary ---
Short Stay Discharge Plan Activity: other (no straining ) Weight Bearing Status: Full Weight Bearing Diet: low salt, diabetic Special Instructions: other (home with urbina ) Follow up with: HUBERT JACKSON MD [Primary Care Provider] - 7 Days
== END 2019-12-02 16:00 | disposition home or self-care (01) ==
LOC: UNDOADMIN 12:32 → 3A 12:32 → PREINTOOBSV 12:40 → 3B-SURG 12:49
PROVIDERS: ADMIT Urology; ATTEND Urology
DX: T83.712A Erosion of implanted urethral mesh to surrounding organ or tissue, initial encounter (principal); N36.8 Other specified disorders of urethra; R33.8 Other retention of urine; N36.0 Urethral fistula; Z79.82 Long term (current) use of aspirin
CPT/HCPCS: 53446; 87075; 87076; 87116; 87186; 96361; 96365; 96366; A4217; C1769; C1815; G0378; G0379; J0690; J2405; J2704; J3010; J7030

== ENCOUNTER 2020-01-02 09:26 | Day surgery (SDC) | payer MEDICARE ==
--- NOTE | 2020-01-02 08:40 | Anesthesia Consultation ---
Anesthesia Consult and Med Hx Date of service: 01/02/20 - Airway Anesthetic Teeth Evaluation: Good ROM Head & Neck: Adequate Mental/Hyoid Distance: Adequate Mallampati Class: Class II Intubation Access Assessment: Good - Pulmonary Exam CTA: Yes - Cardiac Exam Cardiac Exam: RRR - Pre-Operative Health Status ASA Pre-Surgery Classification: ASA3 Proposed Anesthetic Plan: General - Pulmonary Hx Smoking: Yes (quit 40yrs ago) Hx Asthma: No Hx Respiratory Symptoms: No COPD: No Hx Pneumonia: No Hx Sleep Apnea: No (NELA PRE SCREEN HIGH RISK) - Cardiovascular System Hx Hypertension: Yes Hx Coronary Artery Disease: Yes (s/p CABG 2013) Hx Heart Attack/AMI: No Hx Percutaneous Transluminal Coronary Angioplasty (PTCA): Yes Hx Cardia Arrhythmia: Yes (1 episode a-2013; chronic LBBB per previous records) Hx Pacemaker: No Hx Internal Defibrillator: No Hx Heart Murmur: No - Central Nervous System Hx Seizures: No CVA: No Hx Back Pain: No Hx Psychiatric Problems: No - Gastrointestinal Hx Ulcer: No Hx Gastroesophageal Reflux Disease: No - Endocrine Hx Renal Disease: No Hx End Stage Renal Disease: No Hx Cirrhosis: No Hx Liver Disease: No Hx Insulin Dependent Diabetes: No Hx Non-Insulin Dependent Diabetes: No Hx Thyroid Disease: No Hx Hypothyroidism: No Hx Hyperthyroidism: No - Hematic Hx Anemia: Yes (NOT RECENT) Hx Sickle Cell Disease: No - Other Systems Hx Alcohol Use: No Hx Substance Use: No Hx Cancer: Yes (Prostate CA ) Hx Obesity: No
--- NOTE | 2020-01-02 08:41 | Anesthesia Day of Surgery ---
Anesthesia Day of Surgery - Day of Surgery Patient Examined: Yes Patient H&P Reviewed: Yes Patient is NPO: Yes Beta Blockers: Yes
[~2020-01-02 09:26] MED LIST changes: -GENTAMICIN/NS 80 MG/100 ML 100 ML IV SCH; +HYDROmorphone 1 MG/1 ML INJ ONE; +LACTATED RINGERS 1,000 ML IV SCH; +ONDANSETRON 4 MG/2 ML INJ ONE; -VANCOMYCIN/NS 1 GM/250 ML 1 GM/250 ML BAG IV SCH; +ceFAZolin/Water 2 GM/20 ML 2 GM/20 ML SYRINGE IV NR; +dexAMETHasone 20 MG/5 ML VIAL ONE; +ePHEDrine SULFATE 50 MG/1 ML INJ ONE; -fentaNYL 100 MCG/2 ML INJ ONE
[2020-01-02] MEDS ORDERED: HYDROmorphone 1 MG/1 ML INJ IV PRN (09:30)
[2020-01-02] MEDS ORDERED: METHYLENE BLUE 50 MG/10 ML AMP ONE (09:36)
[2020-01-02] MEDS ORDERED: METHYLENE BLUE 50 MG/10 ML AMP IRRIGATION ONE (09:40)
[2020-01-02] MEDS ORDERED: IOHEXOL 300 MG/ML 100ML IR ONE (09:41)
--- NOTE | 2020-01-02 10:22 | Short Stay Summary ---
Short Stay Documentation Date of service: 01/02/20 - History H&P: obtained from office - Allergies and Medications Current Medications: Allergies No Known Allergies Allergy (Verified 10/19/13 09:47) Home Medications Medication Instructions Recorded Confirmed Last Taken Type Aspirin [Aspirin BABY CHEW TAB] 81 mg PO DAILY 10/19/13 12/29/19 12/01/19 08:00 History AtorvaSTATin [Lipitor] 20 mg PO HS 11/10/14 12/29/19 11/30/19 20:00 History Losartan [Cozaar] 100 mg PO QDAY 04/19/19 12/29/19 12/01/19 08:00 History Metoprolol [Lopressor TAB] 50 mg PO BID 04/19/19 12/29/19 12/01/19 08:00 History Complete Multi Tablet 1 tab PO DAILY 12/28/19 12/28/19 Unknown History Active Medications Hydromorphone HCl (Dilaudid) 0.25 mg IV Q10MIN PRN PRN Reason: Pain, Moderate (4-6) Stop: 01/02/20 23:00 Cefazolin Sodium (Ancef/Sterile Water 2 Gm/20 Ml) 2 gm in 20 mls @ 80 mls/hr IV PREOP NR; Protocol Stop: 01/02/20 23:00 Lactated Ringer's (Lactated Ringers) 1,000 mls @ 100 mls/hr IV DIRECT TONY Stop: 01/02/20 23:59 - Brief post op/procedure progress note Date of procedure: 01/02/20 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
--- NOTE | 2020-01-02 12:14 | Operative Report ---
PREOPERATIVE DIAGNOSES: Urethral stricture, urethrocutaneous fistula. POSTOPERATIVE DIAGNOSES: Urethral stricture, urethrocutaneous fistula. PROCEDURES: Urethroscopy, urethrogram, suprapubic tube placement, percutaneous (cystogram), direct vision internal urethrotomy, Magana catheter placement. A pelvic ultrasound was performed as well. SURGEON: Pedro Pascal MD ANESTHESIA: General. ESTIMATED BLOOD LOSS: Minimal. FLUIDS: Crystalloid. COMPLICATIONS: No complications. INDICATIONS: This is a 79-year-old gentleman with a history of prostate cancer, status post radical prostatectomy in the remote past and subsequently underwent an inflatable penile prosthesis and artificial urinary sphincter. Sphincter cuff eroded and was removed. The reservoir and pump were left in place. The patient had the cuff removed. A Magana catheter was placed at that time, the catheter was then removed 10 days later, going to develop a stricture, was unable to insert a new Magana catheter in the office and he presents now for surgical intervention. DESCRIPTION OF PROCEDURE: The patient was taken to the operative suite, placed in a supine position. After adequate general anesthesia, he was placed in a dorsal lithotomy position, prepped and draped in a sterile fashion. Pelvic ultrasound was used to identify the bladder, which was marked in the midline, the urinary sphincter reservoir, which was marked to the left of the midline, and a penile prosthesis sphincter, which was marked to the right of the midline. At that point, urethroscopy was performed and urethrogram, could see a proximal urethral stricture with a wisp of dye that was able to get into the bladder. Multiple attempts to advance a wire were unsuccessful and before too much manipulation, I elected to place a suprapubic catheter to maintain proximal drainage. A 14-Citizen Of [place] Bard punch placement of a catheter was performed without difficulty. Urine could be appreciated. Balloon was inflated, 10 mL of saline dye was injected for a cystogram, which confirmed adequate position, was tied into position with 2-0 silk in an interrupted fashion. Next, attention was taken back to the urethra. Multiple attempts to pass a 0.035 Glidewire were unsuccessful. I then went to a 0.02 wire, which could be advanced into the bladder under fluoroscopic guidance. An open-ended catheter was then used to advance over the Glidewire. It was switched to a 0.035 Glidewire. Attempts with curved urethral dilators were performed, the tract was then lost and I was not able to advance. At that point, after multiple attempts, I was able to again get a 0.025 Glidewire placed, which I was able to then place over the open-ended catheter. I used an Amplatz system. I was able to dilate up to 16-Citizen [place] and then advanced a ione-tip catheter over the open-ended catheter. Cystogram was obtained to confirm adequate position. The suprapubic tube was plugged, curled up and taped to the abdomen. The 16-Citizen [place] ione-tip catheter was left indwelling. Rectal exam was benign. He was extubated and taken to the recovery room in stable condition. He will follow up in 2-3 weeks for reevaluation and possible removal of his catheters. JOB# [id number] PASHA/BANDAR
[2020-01-02 15:16] VITALS: BP 134/54
--- NOTE | 2020-01-02 15:25 | Fluoroscopy Report ---
INTRAOPERATIVE FLUOROSCOPY INDICATION / CLINICAL INFORMATION: NEUROGENIC BLADDER/URETHRAL STRICTURE. TECHNIQUE: Intraoperative spot images were obtained during the procedure. FINDINGS: Intraoperative fluoroscopy images for retrograde ureterogram. See operative/procedure note by performing physician for full details. Fluoroscopy Time: 57 seconds. Fluoroscopy Images: 7. Signer Name: Daniel Maharaj MD Signed: 01/02/2020 3:21 PM Workstation Name: [id number]
--- NOTE | 2020-01-02 15:25 | Fluoroscopy Report ---
INTRAOPERATIVE FLUOROSCOPY INDICATION / CLINICAL INFORMATION: NEUROGENIC BLADDER/URETHRAL STICTURE. TECHNIQUE: Intraoperative spot images were obtained during the procedure. FINDINGS: Intraoperative fluoroscopy images for cystogram. See operative/procedure note by performing physician for full details. Fluoroscopy Time: 57 seconds. Fluoroscopy Images: 3. Signer Name: Daniel Maharaj MD Signed: 01/02/2020 3:21 PM Workstation Name: [id number]
--- NOTE | 2020-01-05 11:03 | Ultrasound Report ---
US pelvic limited INDICATION / CLINICAL INFORMATION: NEUROGENIC BLADDER,MARKING FOR A SUPRAPUBIC TUBE TECHNIQUE: Intraoperative sonographic images were obtained during the procedure. FINDINGS: Intraoperative sonographic images for bladder evaluation before placing a suprapubic catheter. See operative/procedure note by performing physician for full details. Ultrasound Images: 3. Signer Name: Daniel Maharaj MD Signed: 01/05/2020 10:58 AM Workstation Name: [id number]
== END 2020-01-02 13:01 | disposition home or self-care (01) ==
LOC: OR 09:26
PROVIDERS: ATTEND Urology
DX: N35.819 Other urethral stricture, male, unspecified site (principal); N36.0 Urethral fistula; Z20.828 Contact with and (suspected) exposure to other viral communicable diseases; N32.89 Other specified disorders of bladder; N39.46 Mixed incontinence; I48.91 Unspecified atrial fibrillation; I10 Essential (primary) hypertension; I25.10 Atherosclerotic heart disease of native coronary artery without angina pectoris; I42.9 Cardiomyopathy, unspecified; Z87.440 Personal history of urinary (tract) infections; Z79.899 Other long term (current) drug therapy; Z79.82 Long term (current) use of aspirin; Z87.891 Personal history of nicotine dependence; Z95.1 Presence of aortocoronary bypass graft; Z85.46 Personal history of malignant neoplasm of prostate; Z98.890 Other specified postprocedural states; Z87.442 Personal history of urinary calculi; Z86.2 Personal history of diseases of the blood and blood-forming organs and certain disorders involving the immune mechanism; Z82.49 Family history of ischemic heart disease and other diseases of the circulatory system
CPT/HCPCS: 51102; 52281; 74430; 74450; 76857; C1726; C1758; C1769; C2627; J0690; J1100; J1170; J2405; J2704; J7120; Q9967; Q9968; U0003